=== PATIENT | female | born 1990 | race Caucasian/White ===

== ENCOUNTER 2019-04-30 16:40 | Emergency (ER) | payer SELFPAY ==
[~2019-04-30] VITALS: Ht 165.1 cm; Wt 77.1 kg
[2019-04-30 16:47] VITALS: BP 118/58
--- NOTE | 2019-04-30 17:10 | NUR ---
PATIENT PRESENTS TO ED WITH VAGINAL ITCHING X 1 WEEK PT ALSO COMPLAINS OF PRESSURE-LIKE LOWER ABDOMINAL PAIN, 6/10, NON-RADIATING. PT WAS PRESCRIBED WITH VAGINAL CREAM. +D/C-GREYISH, WATERY -URINARY SYMPTOMS. LMP 04/16/19. DENIES N/V/D; SKIN IS PINK/WARM/DRY; AAOX4 WITH EVEN AND STEADY GAIT; LUNGS CLEAR BL; HR EVEN AND REGULAR; PT DENIES ANY FEVER, CP, SOB, OR COUGH AT THIS TIME; PATIENT STATES PAIN OF 6/10 AT THIS TIME; VSS; PATIENT POSITIONED FOR COMFORT; HOB ELEVATED; BEDRAILS UP X2; BED DOWN. ER MD MADE AWARE OF PT STATUS. NO PMH. ALLERGY TO IBUPROFEN.
[2019-04-30] MEDS ORDERED: KETOROLAC 60 MG/2 ML VIAL IM ONE (17:35)
[2019-04-30 18:35] VITALS: BP 118/58
[2019-05-02 06:12] LABS: CHLAMYDIA TRACHOMATIS AMP DNA Negative (Negative)
== END 2019-04-30 18:35 | disposition home or self-care (01) ==
LOC: MED 16:40
DX: N89.8 Other specified noninflammatory disorders of vagina (principal); F12.90 Cannabis use, unspecified, uncomplicated
CPT/HCPCS: 36415; 81002; 81025; 87070; 87205; 87210; 87491; 96372; 99283; J1885